=== PATIENT | male | born 1980 | race Caucasian/White ===

== ENCOUNTER 2022-01-04 03:16 | Emergency (ER) | payer OTHER ==
[2022-01-04 03:55] LABS: HEMATOCRIT 40.2 % (42.0-52.0); MANUAL DIFF REFLEX YES; MEAN CELL VOLUME 108.4 fl (80.0-94.0); MEAN CORPUSCULAR HGB CONC 32.3 g/dl (33.0-37.0); PLATELET COUNT AUTOMATED 235 10*3/uL (130-400); RED BLOOD COUNT 3.71 10*6/uL (4.50-5.90); RED CELL DISTRI WIDTH 15.1 % (0-14.5); WHITE BLOOD COUNT 4.6 10*3/uL (4.8-10.8)
[2022-01-04 04:14] LABS: ALKALINE PHOSPHATASE 219 U/L (45-117); BUN 12 mg/dl (7-24); CHLORIDE 112 mmol/L (98-107); CREATININE 1.24 mg/dL (0.70-1.30); POTASSIUM 4.6 mmol/L (3.5-5.1); SGOT/AST 352 IU/L (3-35); SGPT/ALT 291 U/L (12-78); SODIUM 144 mmol/L (136-145); TOTAL PROTEIN 6.7 gm/dL (6.4-8.2)
[2022-01-04 04:19] LABS: PLATELET SUFFICIENCY NORMAL (NORMAL); TOTAL CELLS COUNTED 100 #CELLS
== END 2022-01-04 06:32 | disposition home or self-care (01) ==
LOC: ED 03:16
PROVIDERS: Internal Medicine
DX: R07.89 Other chest pain (principal); D53.9 Nutritional anemia, unspecified; R42 Dizziness and giddiness; R74.01 Elevation of levels of liver transaminase levels